=== PATIENT | female | born 1965 | race Asian ===

== ENCOUNTER 2018-04-05 07:42 | Day surgery (SDC) | payer MEDICAID ==
[~2018-04-05 07:42] MED LIST: DEXAMETHASONE 4 MG/ML 1 ML INJ; LIDOCAINE 2% (SDV) 5 ML INJ
[2018-04-05] MEDS: SOD CHLORIDE 0.9% 1,000 ML IV (08:49)
[2018-04-05] MEDS: BUPIVACAINE 0.5%/EPI (SDV) 30 ML INJ (09:12)
[2018-04-05] MEDS ORDERED: CEFAZOLIN 1 GM/50 ML (PMX) 50 ML IVPB (10:00)
[2018-04-05] MEDS ORDERED: PROPOFOL 100 ML (10:22)
[2018-04-05] MEDS ORDERED: DEXAMETHASONE 4 MG/ML 1 ML INJ (10:40)
[2018-04-05] MEDS ORDERED: ROCURONIUM 50 MG INJ (10:40)
[2018-04-05] MEDS ORDERED: ONDANSETRON 4 MG INJ (10:41)
[2018-04-05] MEDS: BUPIVACAINE 0.5% (SDV) 30 ML INJ (10:43)
[2018-04-05] MEDS ORDERED: CEFAZOLIN 1 GM INJ (11:03)
[2018-04-05] MEDS ORDERED: SUGAMMADEX SODIUM 200 MG/2 ML VIAL IV (11:04)
[2018-04-05] MEDS ORDERED: MEPERIDINE 25 MG INJ IV (11:30)
[2018-04-05] MEDS ORDERED: FENTAnyl 50 MCG/ML VIAL IV ×2 (11:30)
[2018-04-05] MEDS ORDERED: EPHEDrine SULFATE 50 MG/5 ML SYG IV (11:30)
[2018-04-05] MEDS ORDERED: morphine (1 MG/ML) 10ML SYRINGE IV ×2 (11:30)
[2018-04-05] MEDS ORDERED: METOCLOPRAMIDE 10 MG INJ IV (11:30)
[2018-04-05] MEDS ORDERED: OXYCODONE/ACETAMINOPHEN (5/325) TAB PO ×2 (11:30)
[2018-04-05] MEDS ORDERED: ALBUTEROL 0.083% (NEB) 2.5 MG/3 ML AMP HHN (11:30)
[2018-04-05] MEDS ORDERED: hydrALAzine 20 MG INJ IV (11:30)
[2018-04-05] MEDS ORDERED: KETOROLAC 30 MG INJ IV (11:30)
[2018-04-05] MEDS ORDERED: LABETALOL HCL 20MG INJ IV (11:30)
[2018-04-05] MEDS ORDERED: DIPHENHYDRAMINE 50 MG INJ IV (11:30)
[2018-04-05] MEDS ORDERED: ONDANSETRON 4 MG INJ IV (11:30)
[2018-04-05] MEDS ORDERED: FENTAnyl 50 MCG/ML VIAL (11:37)
[2018-04-05] MEDS: FENTAnyl 50 MCG/ML VIAL IV (12:16)
== END 2018-04-05 13:00 | disposition home or self-care (01) ==
LOC: SDS 07:42
DX: D21.4 Benign neoplasm of connective and other soft tissue of abdomen (principal); I10 Essential (primary) hypertension
CPT/HCPCS: 19120; 84703; 88307